=== PATIENT | female | born 1990 | race Two or more races ===

== ENCOUNTER 2024-11-21 13:33 | Emergency (ER) | payer OTHER ==
[~2024-11-21] VITALS: Ht 165.1 cm; Wt 59.0 kg
[2024-11-21 13:58] LABS: PLATELET COUNT (AUTO) 268 K/uL (150-450); RED BLOOD CELL COUNT(AUTO) 4.15 MIL/uL (4.0-5.2); RED CELL DISTRIBUTION WIDTH 13.7 % (11.5-15.0); WHITE BLOOD COUNT (AUTO) 5.3 K/uL (4.3-11.0)
[2024-11-21 14:04] LABS: CALCIUM, SERUM 8.8 mg/dL (8.5-10.1); CREATININE 0.6 mg/dL (0.6-1.3); SODIUM SERUM 138 mmol/L (136-145); UREA NITROGEN, BLOOD 13 mg/dL (7-18)
[2024-11-21 14:27] LABS: ALCOHOL, BLOOD < 3 mg/dL (0-10)
[2024-11-21 14:28] LABS: PREGNANCY TEST URINE QUAL NEGATIVE (NEGATIVE)
[2024-11-21] MEDS ORDERED: IBUP-1490 PO (14:44)
[2024-11-21 14:46] LABS: AMPHETAMINE, URINE NEGATIVE (NEGATIVE); BARBITURATE, URINE NEGATIVE (NEGATIVE); BENZODIAZEPINE, URINE NEGATIVE (NEGATIVE); CANNABINOID, URINE NEGATIVE (NEGATIVE); COCCAINE, URINE NEGATIVE (NEGATIVE); OPIATE, URINE NEGATIVE (NEGATIVE)
[2024-11-21] MEDS ORDERED: HYDR-500 PO (15:03)
[2024-11-21 15:43] VITALS: BP 98/60; TEMP 98; O2SAT 97
== END 2024-11-21 15:44 | disposition home or self-care (01) ==
LOC: ER 13:37
DX: R07.89 Other chest pain (principal); R20.0 Anesthesia of skin; R20.2 Paresthesia of skin
CPT/HCPCS: 36415; 71045-TC; 80048-TC; 84443-TC; 84484-TC; 84703-TC; 85025-TC; G0480